=== PATIENT | female | born 1980 | race African-American/Black ===

== ENCOUNTER 2020-07-29 15:38 | Outpatient (CLI) | payer BC, SELFPAY ==
--- NOTE | ~2020-07-29 | MM_ITS ---
EXAMINATION: MM screening rashaun BI w ad HISTORY: Screening mammogram, family history of breast cancer in her mother. TECHNIQUE: Craniocaudal and mediolateral oblique 3-D tomosynthesis images were obtained and synthetic 2-D images were generated. CAD analysis was submitted and interpreted. COMPARISON: 08/21/2016 BREAST PARENCHYMAL COMPOSITION: The breasts are heterogeneously dense, which may obscure small masses . FINDINGS: There is no evidence of suspicious mass, calcification, or architectural distortion to sugg est malignancy in either breast. There has been no suspicious interval change. IMPRESSION: 1. No mammographic evidence of malignancy. 2. Recommend routine screening mammography in one year. BI-RADS Category 1: Negative Reviewed, dictated and finalized at location A.
== END 2020-07-29 15:39 | disposition home or self-care (01) ==
LOC: ANHIMG 15:43
PROVIDERS: PCP Emergency Medicine; Visit Provider Emergency Medicine
DX: Z12.31 Encounter for screening mammogram for malignant neoplasm of breast (principal)
CPT/HCPCS: 77063; 77067

== ENCOUNTER 2021-01-30 17:02 | Inpatient (IN) | payer BC, MEDICAID, SELFPAY ==
[2021-01-30] VITALS (7 sets, daily range): BP systolic 95–138; BP diastolic 44–79; PULSE 91–121; RESP 16–18; TEMP 36.3–39.3; O2SAT 99–100; BMI 20.8
--- NOTE | ~2021-01-30 | XR_ITS ---
EXAMINATION: XR chest 1V DATE: 01/30/2021 19:37 INDICATION: Cough, urinary tract infection and fever. TECHNIQUE: frontal view of the chest was obtained. COMPARISON: None FINDINGS: The lungs are clear with no focal airspace opacities, pulmonary edema, pleural effusion or pneumothor ax. The cardiomediastinal silhouette is normal. Visualized bones and soft tissues are unremarkable. IMPRESSION: 1. No acute cardiopulmonary disease. Reviewed, dictated and finalized at location A.
--- NOTE | ~2021-01-30 | CT_ITS ---
EXAMINATION: CT abdomen pelvis wo con DATE: 01/30/2021 19:30 INDICATION: Renal stone. TECHNIQUE: Computed tomography (CT) of the abdomen and pelvis was performed without intravenous contr ast. Automated exposure control and iterative reconstruction technique were employed. The dose-length product was 210.83 mGy-cm. COMPARISON: 03/11/2013 FINDINGS: Mild dependent atelectasis in the bilateral lower lobes. No pleural effusion. Heart size is normal. S mall pericardial effusion similar in degree to the prior study. Liver, gallbladder, spleen, pancreas, left kidney and bilateral adrenal glands are normal. 1 mm nonobstructing stone in an upper pole adriana x of the right kidney. There is mild haziness to the fat at the right renal sinus and mild inferior r ight perinephric stranding. No evident ureteral stones or hydronephrosis. Bladder and retroverted reema reid are unremarkable. A few phleboliths in the pelvis. Moderate amount of stool scattered throughout the colon. No bowel obstruction. The appendix is not visualized. No pericecal inflammatory change to suggest acute appendicitis. Minimal ascites in the pelvis. No goldie peroneal gas. No pathologically e nlarged abdominal or pelvic lymphadenopathy. Bones are unremarkable. IMPRESSION: 1. 1 mm nonobstructing right renal stone. 2. Haziness to the right renal sinus fat and mild right perinephric stranding without evident hydrone phrosis. Differential would include pyelonephritis and would correlate with urinalysis. Reviewed, dictated and finalized at location A. IMPRESSION: 1. 1 mm nonobstructing right renal stone. 2. Haziness to the right renal sinus fat and mild right perinephric stranding w ithout evident hydronephrosis. Differential would include pyelonephritis and wo uld correlate with urinalysis.
[2021-01-30 18:11] LABS: Basophils Percent Auto 0.3 % (0.2-1.2); Hematocrit 32.9 % (37.0-47.0); Hemoglobin 11.2 g/dL (12.0-15.0); Immature Granulocyte Absolute 0.05 K/mm3 (0.00-0.031); Immature Granulocyte Percent A 0.4 % (0-0.5); Lymphocytes Percent Auto 7.7 % (18.3-44.2); Mean Corpuscular Hemoglobin 31.3 pg (26-34); Mean Corpuscular Volume 91.9 fl (80-100); Monocytes Absolute Auto 1.1 K/mm3 (0.1-0.6); Neutrophils Absolute Auto 9.6 K/mm3 (1.3-6.7); Neutrophils Percent Auto 82.6 % (45.5-73.1); Platelet Count Result 235 k/mm3 (150-375); Red Blood Count 3.58 M/mm3 (4.2-5.4); Red Cell Distribution Width 11.8 % (11.5-14.5); White Blood Count 11.7 K/mm3 (4.5-10.0)
[2021-01-30 18:22] LABS: Alanine Aminotransferase 13 U/L (4-35); Albumin Level 3.8 g/dL (3.5-5.1); Alkaline Phosphatase 56 U/L (38-126); Anion Gap 3 mmol/L (8-16); Aspartate Amino Transferase 24 U/L (14-36); Bilirubin,Total 0.4 mg/dL (0.2-1.3); Blood Urea Nitrogen 10 mg/dL (7-17); Calcium 8.8 mg/dL (8.4-10.2); Carbon Dioxide 28 mmol/L (22-30); Chloride 103 mmol/L (98-107); Estimated CRCL calculation 62 ml/min; Estimated Glomerular Filt Rate > 60; Glucose 116 mg/dL (65-105); Lactic Acid Reflex 1.2 mmol/L (0.7-2.1); Lipase 39 U/L (23-300); Potassium 3.2 mmol/L (3.4-5.0); Sodium 134 mmol/L (137-145)
[2021-01-30] MEDS: SODIUM CHLORIDE 0.9% IV 1,000 ML 999 ML IV CONT ×2 (18:30→20:09)
[2021-01-30 18:54] LABS: Add Urine Microscopic? YES; Appearance Urine Clear (Clear); Bilirubin Urine Negative (Negative); Blood Urine 1+ (Negative); Color Urine Yellow (Yellow); Glucose Urine UA Negative (Negative); Ketones Urine Trace mg/dL (Negative); Leukocyte Esterase Ur Trace LEU/UL (Negative); Mucus Urine Rare /lpf; Nitrate Urine Negative (Negative); Protein Urine 1+ mg/dL (Negative); Specific Grav Ur 1.011 (1.001-1.035); Squamous Epithelial Cell Urine Few /hpf (Few)
--- NOTE | 2021-01-30 19:50 | ED.GENADULT ---
HPI - General Adult General Chief complaint: Urogenital-Female Stated complaint: UTI Time Seen by Provider: 01/30/21 17:36 Source: patient Mode of arrival: ambulatory Limitations: no limitations History of Present Illness HPI narrative: Patient is a 40-year-old female who presents with fever chills body aches noting that she was diagnosed with a urinary tract infection yesterday at urgent care started on Macrobid patient notes today she developed fever chills and body aches again for which she took ibuprofen with minimal improvement patient denies any vomiting diarrhea patient notes slight cough but denies other URI symptoms or sick contacts patient denies vaginal discharge change in bowel habits. On arrival patient is ill-appearing and appears uncomfortable Related Data Home Medications Medication Instructions Recorded Confirmed No Home Medications 01/30/21 01/30/21 Allergies Allergy/AdvReac Type Severity Reaction Status Date / Time No Known Allergies Allergy Verified 01/30/21 18:33 Review of Systems Review of Systems: All systems reviewed & are unremarkable except as noted in HPI and below PMFSH Social History Social History (Updated 01/30/21 @ 19:53 by Adarsh Olguin PA-C) Smoking status: Never smoker Gender identity (if verbalized by the patient): Female Exam Narrative: Exam Narrative: GENERAL: Ill-appearing, well-nourished, and in no acute distress. HEAD: Normocephalic, atraumatic. EYES: PERRLA and EOMI. ENT: Nares clear, no rhinorrhea or epistaxis. Mucous membranes moist. NECK: Supple. No adenopathy or masses. CHEST: Clear to auscultation. No respiratory distress. No wheezes rales or rhonchi HEART: Regular rate and rhythm. No murmur heard. Normal peripheral pulses. ABDOMEN: Soft, nontender, nondistended EXTREMITIES: Normal range of motion. No edema. SKIN: Warm, dry, no rash. NEURO: No focal deficits. Alert and oriented x3. Cranial nerves II through XII grossly intact PSYCH: Normal mood and affect. Course Course Emergency Course: Patient was evaluated in the emergency department hydrated given IV antibiotics with slight improvement in her condition patient was evaluated with chest x-ray scan of the abdomen and likely is found to have pyelonephritis or partially treated urinary tract infection patient will be brought in the hospital for continued IV therapy. Patient with ABCs and vital signs intact and stable and agrees with this plan Consultations Consultation #1: Discussed case with Cecelia who has agreed to accept the patient to Date: 01/30/21 Time: 19:55 Vital Signs Vital signs: Vital Signs Temperature 102.5 F H 01/30/21 17:23 Pulse Rate 121 H 01/30/21 17:23 Respiratory Rate 18 01/30/21 17:23 Blood Pressure 100/61 01/30/21 17:23 Pulse Oximetry 100 01/30/21 17:23 Temperature 102.7 F H 01/30/21 19:04 Pulse Rate 116 H 01/30/21 18:27 Respiratory Rate 18 01/30/21 18:27 Blood Pressure 133/78 01/30/21 18:27 Pulse Oximetry 100 01/30/21 18:27 Medical Decision Making MDM Narrative Medical decision making narrative: Patient presented with fever likely attributed to urinary tract infection patient with partially treated infection probably secondary to being on Macrobid given her fever and tachycardia patient will be brought in observed overnight with continued IV therapy and fluids patient agrees with this plan Vital Signs Vital Signs: Vital Signs Temperature 102.5 F H 01/30/21 17:23 Pulse Rate 121 H 01/30/21 17:23 Respiratory Rate 18 01/30/21 17:23 Blood Pressure 100/61 01/30/21 17:23 Pulse Oximetry 100 01/30/21 17:23 Temperature 102.7 F H 01/30/21 19:04 Pulse Rate 116 H 01/30/21 18:27 Respiratory Rate 18 01/30/21 18:27 Blood Pressure 133/78 01/30/21 18:27 Pulse Oximetry 100 01/30/21 18:27 Lab Data Result diagrams: 01/30/21 18:00 01/30/21 18:00 Labs: Lab Results 01/30/21 01/30/21 04
[2021-01-30] MEDS: KETOROLAC 15 MG/ML VIAL (*BKC) IV PUSH (20:09)
--- NOTE | 2021-01-30 21:26 | ADMGEN ---
This patient, Huseyin Talavera, was admitted to Medical Room 343-01. Patient/family oriented to hospital policies and general routines including ID bracelet, bed and alarms, visiting hours, pain management, procedures, bathroom and other care routines, personal items, smoking policy, room service/diet, and visiting hours. Information on how to activate the Rapid Response Team has been discussed. Patient/Family are encouraged to report perceived risks to care and to ask questions if they do not understand what they are told or what they should do.
[2021-01-30] MEDS: LACTATED RINGERS 1,000 ML 125 ML IV CONT (21:46)
[2021-01-30] MEDS: FAMOTIDINE 20 MG/2 ML VIAL IV PUSH (22:17)
[2021-01-31] VITALS (8 sets, daily range): BP systolic 100–116; BP diastolic 50–71; PULSE 86–99; RESP 16–18; TEMP 35.8–37.9; O2SAT 99–100
--- NOTE | 2021-01-31 | ECHO_ITS ---
Patient Info Name: Huseyin Talavera Age: 40 years : 1980 Gender: Female Ht: 66 in Wt: 129 lbs BSA: 1.65 m2 HR: 80 bpm BP: 100 / 50 mmHg Heart Rhythm: Sinus Rhythm Technical Quality: Good Exam Date: 01/31/2021 11:49 AM Exam Location: [facility] Card Pulmonary Patient Status: Inpatient Admit Date: 01/30/2021 Staff Ordering Physician: Tracey Orourke PA-C Card Game Operator: Jaon Franco RDCS Attending Provider: Tracey Orourke PA-C Referring Physician: Haven SAAB; Exam Type: CA echo doppler color flow Study Info Indications - [place] FEVER Complete two-dimensional, color flow and Doppler transthoracic echocardiogram is performed. Summary 1. Complete two-dimensional, color flow and Doppler transthoracic echocardiogram is performed. 2. Left ventricular systolic function is normal, estimated at 60-65%. 3. There is no increased left ventricular wall thickness. 4. The left ventricular diastolic function is normal. 5. There is mild mitral valve regurgitation. 6. There is mild tricuspid valve regurgitation. 7. No pulmonary hypertension, estimated pulmonary arterial systolic pressure is 27 mmHg. Left Ventricle Left ventricular chamber dimension is normal. Left ventricular systolic function is normal, estimated at 60-65%. There is no increased left ventricular wall thickness. The left ventricular diastolic function is normal. Right Ventricle Right ventricular chamber dimension is normal. Right ventricular systolic function is normal. Left Atria Left atrial chamber dimension is normal. Right Atria Right atrial chamber dimension is normal. Aortic Valve The aortic valve is trileaflet. There is mild aortic valve sclerosis. There is no aortic valve regurgitation. Pulmonic Valve The pulmonic valve is not well visualized. Mitral Valve The mitral valve has normal leaflets. There is mild mitral valve regurgitation. Tricuspid Valve The tricuspid valve leaflets are normal. There is mild tricuspid valve regurgitation. No pulmonary hypertension, estimated pulmonary arterial systolic pressure is 27 mmHg. Pericardium/Pleural The pericardium appears normal. There is trivial pericardial effusion. Inferior Vena Cava Normal inferior vena cava with >50% collapse upon inspiration consistent with normal right atrial pressure, 5 mmHg. Aorta The aortic root size at the sinus of Valsalva is normal. Left Ventricular Outflow Tract Name Value Normal LVOT 2D LVOT Diameter 2.0 cm LVOT Doppler LVOT Peak Gradient 4 mmHg LVOT Mean Gradient 3 mmHg LVOT VTI 22 cm LVOT VTI/AV VTI Ratio 0.8 LVOT Stroke Volume 66 ml LVOT CO 14.0 l/min LVOT CI 8.5 l/min/m2 Pulmonic Valve Name Value Normal PV Dop
[2021-01-31] MEDS: LACTATED RINGERS 1,000 ML 125 ML IV CONT ×3 (05:52→22:52)
[2021-01-31 05:53] LABS: Basophils Percent Auto 0.3 % (0.2-1.2); Eosinophils Percent Auto 0.1 % (0-4.4); Hematocrit 27.4 % (37.0-47.0); Hemoglobin 9.2 g/dL (12.0-15.0); Immature Granulocyte Absolute 0.06 K/mm3 (0.00-0.031); Immature Granulocyte Percent A 0.5 % (0-0.5); Lymphocytes Absolute Auto 1.16 K/mm3 (0.9-3.2); Lymphocytes Percent Auto 9.7 % (18.3-44.2); Mean Corpuscular HGB Conc 33.6 g/dl (32-36); Mean Corpuscular Hemoglobin 30.2 pg (26-34); Mean Corpuscular Volume 89.8 fl (80-100); Mean Platelet Volume 11.1 fl (7.4-10.4); Monocytes Absolute Auto 1.7 K/mm3 (0.1-0.6); Monocytes Percent Auto 13.8 % (2.6-8.5); Neutrophils Percent Auto 75.6 % (45.5-73.1); Platelet Count Result 218 k/mm3 (150-375); Red Blood Count 3.05 M/mm3 (4.2-5.4); Red Cell Distribution Width 11.9 % (11.5-14.5); White Blood Count 11.9 K/mm3 (4.5-10.0)
[2021-01-31 06:06] LABS: Alanine Aminotransferase 29 U/L (4-35); Albumin Level 2.9 g/dL (3.5-5.1); Alkaline Phosphatase 51 U/L (38-126); Anion Gap 4 mmol/L (8-16); Aspartate Amino Transferase 44 U/L (14-36); Bilirubin,Total 0.2 mg/dL (0.2-1.3); Blood Urea Nitrogen 7 mg/dL (7-17); Calcium 7.8 mg/dL (8.4-10.2); Carbon Dioxide 25 mmol/L (22-30); Chloride 109 mmol/L (98-107); Estimated CRCL calculation 75 ml/min; Estimated Glomerular Filt Rate > 60; Glucose 108 mg/dL (65-105); Potassium 3.6 mmol/L (3.4-5.0); Sodium 138 mmol/L (137-145)
[2021-01-31] MEDS: FAMOTIDINE 20 MG/2 ML VIAL IV PUSH ×2 (08:50→22:52)
--- NOTE | 2021-01-31 11:39 | PM.IMHP ---
H&P: HPI History of Present Illness Date/Time: 01/31/21 11:39 Chief Complaint: Fever, UTI Narrative: Patient is a 40-year-old female with no significant past medical history who presented emergency room for fever and urinary tract infection. The patient states on Monday 01/22 she started noticing her urine smelled strongly of odor and was darker than normal. She did not think much about it but she then started having a fever Monday 01/29 which prompted her to go to the urgent care. She states she was diagnosed with a UTI and was started on antibiotic Macrobid. Since then, she continued to have fevers, chills and night sweats. Her fever was up to 103 at home. She has had a decreased appetite, continue dark urine, headache, and foul-smelling urine. She denies hematuria, abdominal pain, nausea, vomiting, diarrhea, constipation, vaginal discharge, pelvic pain, risk of STD, or . She said her last menstrual period was 2 weeks ago. She states she feels weak but feels a little better today. She has no history of murmur and no family history of cardiac disease or sudden . Review of Systems Review of Systems: All systems reviewed & are unremarkable except as noted in HPI and below [facility] Surgical History Surgical History (Updated 01/31/21 @ 11:44 by Tracey Orourke PA-C) History of Family History Family History (Updated 01/31/21 @ 11:53 by Tracey Orourke PA-C) Sibling Asthma Mother Breast cancer Daughter Osteosarcoma Social History Social History (Updated 01/31/21 @ 11:45 by Tracey Orourke PA-C) Social History: Patient does not smoke, do drugs or drink alcohol. She works at [employer]. She would like to be a full code. If she is unable to make decisions for herself she would like her father, Morgan, to make decisions for her. Smoking status: Never smoker Alcohol intake: never Substance use: never Living arrangements: alone Gender identity (if verbalized by the patient): Female Spiritual care concerns: No Meds Home Medications and Allergies Home Medications Medication Instructions Recorded Confirmed Type nitrofurantoin monohyd/m-cryst 100 mg PO BID 01/30/21 01/30/21 History Allergies Allergy/AdvReac Type Severity Reaction Status Date / Time No Known Allergies Allergy Verified 01/30/21 21:56 Vital Signs Vital Signs - 24 hr 01/30/21 17:23 01/30/21 18:27 01/30/21 19:04 Temperature 102.5 F H 102.7 F H Pulse Rate 121 H 116 H Respiratory Rate 18 18 Blood Pressure 100/61 133/78 Pulse Oximetry 100 100 01/30/21 20:46 01/30/21 21:53 01/30/21 21:58 Temperature 97.3 F L Pulse Rate 91 92 Respiratory Rate 16 16 Blood Pressure 138/79 95/47 L 96/44 L Pulse Oximetry 100 99 01/30/21 21:59 01/31/21 00:00 01/31/21 05:07 Temperature 96.5 F L Pulse Rate 99 Respiratory Rate 16 Blood Pressure 96/44 L 110/71 100/50 L Pulse Oximetry 100 01/31/21 07:38 Temperature Pulse Rate Respiratory Rate Blood Pressure Pulse Oximetry 99 Exam Narrative: Exam Narrative: General:Well developed well nourished patient resting comfortably in bed in no acute distress HEENT: Normocephalic, atraumatic, PERRL, Sclerae anicteric, oral mucosa moist. Neck: Supple Resp: CTA Heart: RRR with a soft murmur at the right 2nd intercostal space Abd: Soft, nontender. No pain to palpation. Positive bowel sounds Skin: Warm and dry Extremities: No swelling, erythema or pain to palpation Neuro: Alert and Oriented x4 . CN 2-12 intact. No focal neurological deficits. H&P: Results Labs Labs: Short CBC 01/30/21 01/31/21 Range/Units 18:00 05:40 WBC 11.7 H 11.9 H (4.5-10.0) K/mm3 Hgb 11.2 L 9.2 L (12.0-15.0) g/dL Hct 32.9 L 27.4 L (37.0-47.0) % Plt Count 235 218 (150-375) k/mm3 [facility] 01/30/21 01/31/21 18:00 05:40 Sodium 134 L 138 Potassium 3.2 L 3.6 Chloride 103 109 H Carbon Dioxide 28 25 BUN 10
[2021-01-31] MEDS: DOCOSANOL 10% CREAM 2 GM 1 APPLIC TOPICAL ×3 (15:15→22:52)
[2021-02-01 00:52] VITALS: TEMP 38.2
[2021-02-01 01:22] VITALS: TEMP 36.9
[2021-02-01 05:20] VITALS: BP 100/53; PULSE 82; RESP 16; TEMP 36.7; O2SAT 100
[2021-02-01 06:11] LABS: Basophils Percent Auto 0.3 % (0.2-1.2); Eosinophils Absolute Auto 0.1 K/mm3 (0-0.3); Eosinophils Percent Auto 0.8 % (0-4.4); Hematocrit 26.3 % (37.0-47.0); Hemoglobin 8.9 g/dL (12.0-15.0); Immature Granulocyte Absolute 0.04 K/mm3 (0.00-0.031); Immature Granulocyte Percent A 0.4 % (0-0.5); Lymphocytes Percent Auto 19.1 % (18.3-44.2); Mean Corpuscular HGB Conc 33.8 g/dl (32-36); Mean Corpuscular Hemoglobin 30.5 pg (26-34); Mean Corpuscular Volume 90.1 fl (80-100); Mean Platelet Volume 11.1 fl (7.4-10.4); Monocytes Absolute Auto 1.7 K/mm3 (0.1-0.6); Monocytes Percent Auto 16.4 % (2.6-8.5); Neutrophils Absolute Auto 6.6 K/mm3 (1.3-6.7); Platelet Count Result 223 k/mm3 (150-375); Red Blood Count 2.92 M/mm3 (4.2-5.4); White Blood Count 10.5 K/mm3 (4.5-10.0)
[2021-02-01 06:20] LABS: Alanine Aminotransferase 30 U/L (4-35); Alkaline Phosphatase 54 U/L (38-126); Anion Gap 1 mmol/L (8-16); Aspartate Amino Transferase 37 U/L (14-36); Bilirubin,Total 0.2 mg/dL (0.2-1.3); Blood Urea Nitrogen 4 mg/dL (7-17); Calcium 8.3 mg/dL (8.4-10.2); Carbon Dioxide 28 mmol/L (22-30); Chloride 110 mmol/L (98-107); Estimated CRCL calculation 84 ml/min; Estimated Glomerular Filt Rate > 60; Glucose 96 mg/dL (65-105); Potassium 3.5 mmol/L (3.4-5.0); Sodium 139 mmol/L (137-145)
[2021-02-01] MEDS: LACTATED RINGERS 1,000 ML 125 ML IV CONT (07:09)
[2021-02-01] MEDS: DOCOSANOL 10% CREAM 2 GM 1 APPLIC TOPICAL ×5 (08:36→21:20)
[2021-02-01] MEDS: FAMOTIDINE 20 MG/2 ML VIAL IV PUSH (08:36)
[2021-02-01 09:12] LABS: Transferrin 139 mg/dL (206-381)
[2021-02-01 09:20] LABS: Iron 13 ug/dL (37-170)
[2021-02-01 09:29] LABS: Percent Iron Saturation 6 % (20-50)
--- NOTE | 2021-02-01 09:45 | PM.IMPN ---
Progress Note: A&P Assessment and Plan (1) Pyelonephritis: Code(s): N12 - Tubulo-interstitial nephritis, not specified as acute or chronic Status: Acute Assessment and Plan: Patient's symptoms and CT findings consistent with pyelonephritis -she was initially started on Macrobid outpatient for UTI which failed to improve her condition -ceftriaxone was started in the emergency room and we will continue with that -cultures from outside facility show pansensitive E coli. Await our cultures -blood cultures have no growth to date (2) Sepsis: Code(s): A41.9 - Sepsis, unspecified organism Status: Acute Assessment and Plan: Evident by fever and hypotension secondary to above -blood cultures have no growth to date (3) Urinary tract infection: Code(s): N39.0 - Urinary tract infection, site not specified Status: Acute Assessment and Plan: As above, continue ceftriaxone (4) Systolic murmur: Code(s): R01.1 - Cardiac murmur, unspecified Status: Acute Assessment and Plan: Due to mitral valve regurgitation (5) Mitral valve regurgitation: Code(s): I34.0 - Nonrheumatic mitral (valve) insufficiency Status: Acute Assessment and Plan: Discussed this finding with the patient and I gave her a handout on this. It is mild and she will just need routine monitoring (6) Hypotension: Code(s): I95.9 - Hypotension, unspecified Status: Acute Assessment and Plan: last bp 100/53 -Pt is slight weak but no dizziness or light headedness -likely close to baseline -continue fluids Time Spent With Patient Time with patient: 25 - 35 minutes Subjective Date/time seen: 02/01/21 09:45 Interval history: Pt is a 40-year-old female here for pyelonephritis. Patient was seen today and states she had fevers and rigors yesterday afternoon. She feels like she has improved a little bit. Her appetite is mildly better but she does not like the food here. She is going to order something in. She denies chest pain, nausea, vomiting, abdominal pain, shortness of breath, or headache. Review of Systems Review of Systems: All systems reviewed & are unremarkable except as noted in HPI and below Exam Narrative: Exam Narrative: General:Well developed well nourished patient resting comfortably in bed in no acute distress HEENT: Normocephalic, atraumatic, PERRL, Sclerae anicteric, oral mucosa moist. Neck: Supple Resp: CTA Heart: RRR with a soft murmur at the right 2nd intercostal space Abd: Soft, nontender. No pain to palpation. Positive bowel sounds Skin: Warm and dry Extremities: No swelling, erythema or pain to palpation Neuro: Alert and Oriented x4 . CN 2-12 intact. No focal neurological deficits. Objective Data Vital Signs Vital Signs: Vital Signs - 24 hr 01/31/21 14:00 01/31/21 17:53 01/31/21 18:20 Temperature 97.9 F 100.3 F H 98.8 F Pulse Rate 86 Respiratory Rate 18 Blood Pressure 116/66 Pulse Oximetry 100 01/31/21 20:01 01/31/21 23:07 02/01/21 00:52 Temperature 98.8 F 99.8 F H 100.7 F H Pulse Rate 93 Respiratory Rate 16 Blood Pressure 106/50 L Pulse Oximetry 100 02/01/21 01:22 02/01/21 05:20 Temperature 98.5 F 98.1 F Pulse Rate 82 Respiratory Rate 16 Blood Pressure 100/53 L Pulse Oximetry 100 Intake/Output Intake/Output: Intake & Output 01/29/21 01/30/21 01/31/21 02/01/21 23:59 23:59 23:59 23:59 Intake Total 2150 4620 1540 Output Total 2700 1000 Balance 2150 1920 540 Meds/Results Medications: Active Medications Generic Name Dose Route Start Last Admin Trade Name Freq PRN Reason Stop Dose Admin Docosanol 1 applic 01/31/21 15:00 02/01/21 08:36 Docosanol 10% Cream 2 Gm TOPICAL 1 applic 5 TIMES DAILY RAHUL Administration Famotidine 20 mg 01/30/21 21:00 02/01/21 08:36 Famotidine 20 Mg/2 Ml Vial IV PUSH 20 mg Q12HR RAHUL Administr
[2021-02-01 10:14] LABS: Folic Acid 7.1 ng/mL (2.76->20)
[2021-02-01 14:00] VITALS: BP 103/59; PULSE 83; RESP 20; TEMP 36.1; O2SAT 100
[2021-02-01] MEDS: LACTATED RINGERS 1,000 ML 100 ML IV CONT (17:59)
[2021-02-01 19:57] VITALS: BP 138/76; PULSE 79; RESP 12; TEMP 36.2; O2SAT 100
[2021-02-01] MEDS: FAMOTIDINE 20 MG TABLET PO (21:20)
[2021-02-02 05:45] LABS: Hematocrit 28.1 % (37.0-47.0); Hemoglobin 9.4 g/dL (12.0-15.0); Mean Corpuscular HGB Conc 33.5 g/dl (32-36); Mean Corpuscular Hemoglobin 30.5 pg (26-34); Mean Corpuscular Volume 91.2 fl (80-100); Platelet Count Result 273 k/mm3 (150-375); Red Blood Count 3.08 M/mm3 (4.2-5.4); Red Cell Distribution Width 11.9 % (11.5-14.5); White Blood Count 10.6 K/mm3 (4.5-10.0)
[2021-02-02 05:56] LABS: Anion Gap 5 mmol/L (8-16); Blood Urea Nitrogen 9 mg/dL (7-17); Calcium 8.9 mg/dL (8.4-10.2); Carbon Dioxide 28 mmol/L (22-30); Chloride 106 mmol/L (98-107); Estimated CRCL calculation 75 ml/min; Estimated Glomerular Filt Rate > 60; Glucose 97 mg/dL (65-105); Potassium 3.5 mmol/L (3.4-5.0); Sodium 139 mmol/L (137-145)
[2021-02-02 05:59] VITALS: BP 125/59; PULSE 48; RESP 12; TEMP 36.6; O2SAT 100
--- NOTE | 2021-02-02 07:30 | PM.DS ---
DS: Admitting Diagnosis Admitting Diagnosis Admitting Diagnosis: uTI sepsis DS: Discharge Diagnosis Discharge Diagnosis (1) Pyelonephritis: Code(s): N12 - Tubulo-interstitial nephritis, not specified as acute or chronic Status: Acute Assessment and Plan: Patient's symptoms and CT findings consistent with pyelonephritis -she was initially started on Macrobid outpatient for UTI which failed to improve her condition -ceftriaxone was started in the emergency room and improved her fever and leukocytosis as well as symptoms -cultures from outside facility show pansensitive E coli. Our cultures were negative here likely due to sterilization from macrobid. -blood cultures have no growth to date and will be monitored until finalized -patient will be sent home on cefdinir with follow-up with her primary care physician (2) Sepsis: Code(s): A41.9 - Sepsis, unspecified organism Status: Acute Assessment and Plan: Evident by fever and hypotension secondary to above -blood cultures have no growth to date (3) Urinary tract infection: Code(s): N39.0 - Urinary tract infection, site not specified Status: Acute Assessment and Plan: As above, will finish cefdinir outpatient (4) Systolic murmur: Code(s): R01.1 - Cardiac murmur, unspecified Status: Acute Assessment and Plan: Due to mitral valve regurgitation, patient was informed of this and is going to follow-up with her primary care physician (5) Mitral valve regurgitation: Code(s): I34.0 - Nonrheumatic mitral (valve) insufficiency Status: Acute Assessment and Plan: Discussed this finding with the patient and I gave her a handout on this. It is mild and she will just need routine monitoring (6) Hypotension: Code(s): I95.9 - Hypotension, unspecified Status: Acute Assessment and Plan: Improved, last bp 125/59 DS: Summary Hospital Course Hospital Course: Patient is a 40-year-old female in relatively good health who presented to urgent care for UTI symptoms and found to have a UTI. She was prescribed Macrobid and sent home. She continued to have fevers 103 she came into the emergency room here at [facility]. Renal sinus fat and mild right perinephric stranding without evidence of hydronephrosis which is likely pyelonephritis in the setting of UTI. Patient was admitted to the hospitalist service and started on ceftriaxone. This improved her leukocytosis as well as her fevers and symptoms. Her urine culture was obtained from the outside facility which showed pansensitive E coli but the Macrobid failed to treat the pyelonephritis. The patient received IV antibiotics and did well and was feeling better. Her fever subsided and her blood pressure improved. The day of discharge she was feeling back to baseline. She had a slight murmur during her hospitalization and due to her persistent fever an echocardiogram was done which showed mild mitral valve regurgitation. Patient was informed of this and is going to follow-up with her primary care for monitoring. She was educated about the worrisome signs and symptoms to come back to emergency room for and was discharged in stable condition. Status at Discharge Functional status at discharge: independent ambulation Overall status at discharge: patient is back to baseline Time Spent with Patient Time attestation: Total time spent providing and/or coordinating discharge services:34 min Exam Narrative: Exam Narrative: General:Well developed well nourished patient resting comfortably in bed in no acute distress HEENT: Normocephalic, atraumatic, PERRL, Sclerae anicteric, oral mucosa moist. Neck: Supple Resp: CTA Heart: RRR with a soft murmur at the right 2nd intercostal space Abd: Soft, nontender. No pain to palpation. Positive bowel sounds. no CVA tenderness Skin: Warm and dry Extremities: No swelling, erythem
[2021-02-02] MEDS: DOCOSANOL 10% CREAM 2 GM 1 APPLIC TOPICAL (08:32)
[2021-02-02] MEDS: FAMOTIDINE 20 MG TABLET PO (08:32)
--- NOTE | 2021-02-06 10:58 | PC.NURSE ---
Blood cx are negative.
== END 2021-02-02 10:04 | disposition home or self-care (01) | DRG 872 ==
LOC: ANHED 19:55 → ANH3MED 23:43
PROVIDERS: Emergency Medicine Emergency Medical Services; Physician Assistant; Admitting Provider Internal Medicine; Emergency Provider Emergency Medicine; PCP Emergency Medicine; Visit Provider Internal Medicine
DX: A41.9 Sepsis, unspecified organism (principal); N10 Acute pyelonephritis; R01.1 Cardiac murmur, unspecified; I34.0 Nonrheumatic mitral (valve) insufficiency; I95.9 Hypotension, unspecified
CPT/HCPCS: 36415; 71045; 74176; 80048; 80053; 80076; 81001; 81025; 82607; 82728; 82746; 83540; 83550; 83605; 83690; 84466; 85025; 85027; 87040; 87086; 93306; 96361; 96365; 96366; 96367; 96375; 96376; 99285; A9270; G0378; J0131; J0696; J1885; J7030; J7120